=== PATIENT | male | born 1990 | race Two or more races ===

== ENCOUNTER 2018-10-26 16:25 | Emergency (ER) | payer MEDICAID, OTHER ==
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
[2018-10-26 18:34] VITALS: BP 128/88
--- NOTE | 2018-10-27 11:04 | ASMTCAGE ---
CAGE Additional Comments Chart reviewed. Did not meet with patient Date Signed: 10/27/2018 11:04 AM Electronically Signed By:Meera Hilario RN
== END 2018-10-26 18:34 | disposition home or self-care (01) ==
DX: S63.91XA Sprain of unspecified part of right wrist and hand, initial encounter (principal); W00.0XXA Fall on same level due to ice and snow, initial encounter; Y92.9 Unspecified place or not applicable; Y99.9 Unspecified external cause status; Y93.89 Activity, other specified
CPT/HCPCS: L3984